=== PATIENT | female | born 1940 | race Hispanic/Latino ===

== ENCOUNTER 2018-10-18 20:09 | Inpatient (IN) | payer MEDICARE ==
[~2018-10-18] VITALS: Ht 162.6 cm; Wt 87.6 kg
[~2018-10-18 20:09] MED LIST: AEC81 PO; ALBU90AE IH; APIX5TAB PO; ATOR40TA71 PO; BENZ200C53 PO; DOXY100T2 PO; FLU15OS OU; FLUT250D3 IH; FOLI1CAP10 PO; GUAI118S23 PO; ISOS60TA4 PO; LATA1OIL OU; MELA10TA2 PO; METO-409 PO; NITR.4 SL; OMEP20CA10 PO; PRED20TA3 PO; RAMI1.2528 PO; RANO10003 PO; TEMA30CA PO
[2018-10-18] MEDS ORDERED: IPRATROPIUM/ALBUTEROL SULFATE 3 ML SOLUTION IH ONE (21:13)
[2018-10-18] MEDS ORDERED: METHYLPREDNISOLONE SOD SUCC 125MG/2ML VIAL ONE (21:37)
[2018-10-18 21:52] LABS: BASOPHILS % (AUTO) 2.3 % (0.0-5.0); EOSINOPHILS % (AUTO) 0.2 % (0.0-8.0); HEMATOCRIT 31.4 % (36-48); MEAN CORPUSCULAR HEMOGLOBIN 33.3 pg (27.0-33.0); MEAN CORPUSCULAR VOLUME 98.1 fL (79-99); MONOCYTES % (AUTO) 8.2 % (3.0-13.0); NEUTROPHILS % (AUTO) 78.3 % (40.0-77.0); PLATELET COUNT (AUTO) 118 K/uL (130-400); WHITE BLOOD COUNT (AUTO) 8.9 K/uL (4.8-10.8)
[2018-10-18 22:02] LABS: POTASSIUM 3.5 mmol/L (3.5-5.1)
[2018-10-18 22:08] LABS: ALBUMIN 3.1 g/dL (3.5-5.0); BILIRUBIN,TOTAL 0.7 mg/dL (0.2-1.0); TOTAL PROTEIN, SERUM 6.3 g/dL (6.0-8.3)
[2018-10-18 22:16] LABS: B-TYPE NATRIURETIC PEPTIDE 313 pg/mL (0-100)
[2018-10-19] MEDS ORDERED: LEVOFLOXACIN 500 MG/D5W 100 ML 100 ML ONE (00:20)
[2018-10-19] MEDS: SODIUM CHLORIDE 0.9% 1000ML 1,000 ML IV SCH ×2 (01:08→15:02)
[2018-10-19] MEDS ORDERED: ONDANSETRON HCL 4 MG/2 ML VIAL IV PRN (01:15)
[2018-10-19] MEDS ORDERED: ACETAMINOPHEN 325 MG TAB PO PRN (01:15)
[2018-10-19] MEDS ORDERED: NITROGLYCERIN 0.4 MG SL TAB SL PRN (01:15)
[2018-10-19] MEDS: IPRATROPIUM/ALBUTEROL SULFATE 3 ML SOLUTION IH SCH ×4 (05:39→23:25)
[2018-10-19] MEDS ORDERED: ASPIRIN 81MG TAB.CHEW ONE (07:38)
[2018-10-19] MEDS ORDERED: FAMOTIDINE/PF 20 MG/2 ML VIAL IV ONE (07:39)
[2018-10-19] MEDS ORDERED: ISOSORBIDE MONO 30MG TAB SR PO ONE (07:39)
[2018-10-19] MEDS ORDERED: METOPROLOL TARTRATE 50 MG TAB ONE (07:39)
[2018-10-19] MEDS ORDERED: APIXABAN 2.5 MG TABLET PO ONE (07:39)
[2018-10-19] MEDS: ASPIRIN 81 MG EC TAB PO SCH (09:00)
[2018-10-19] MEDS ORDERED: PANTOPRAZOLE SODIUM 40 MG TABLET.DR PO SCH (09:00)
[2018-10-19] MEDS: FLUOROMETHOLONE 0.1% OU SCH ×2 (09:00→20:59)
[2018-10-19] MEDS: RANOLAZINE 500 MG TAB.SR.12H PO SCH ×2 (09:00→20:56)
[2018-10-19] MEDS ORDERED: ***HM***Melatonin 10 MG PO PRN (09:00)
[2018-10-19] MEDS: APIXABAN 5 MG TABLET PO SCH ×2 (09:00→20:55)
[2018-10-19] MEDS: LISINOPRIL 10 MG TABLET PO SCH (09:00)
[2018-10-19] MEDS: FAMOTIDINE/PF 20 MG/2 ML VIAL IV SCH ×2 (09:00→20:54)
[2018-10-19] MEDS: ISOSORBIDE MONO 30MG TAB SR PO SCH ×2 (09:00→20:55)
[2018-10-19] MEDS ORDERED: ***HM***Metoprolol Succinate 100 MG PO SCH (09:00)
[2018-10-19] MEDS: METOPROLOL TARTRATE 50 MG TAB PO SCH ×2 (09:00→20:55)
[2018-10-19] MEDS ORDERED: RAMIPRIL 1.25 MG PO SCH (09:00)
--- NOTE | 2018-10-19 10:11 | NUR ---
KAREL Shearer met with pt who is from [place], here visiting with her son and daughter in law Annamaria Chin [phone]. Pt lives alone, is independent, drives, has cane and scooter pending, no in home care services. [place] home [place] Addendum: 10/19/18 at 1013 by GURPREET MAY Amended: Links added.
[2018-10-19] MEDS ORDERED: IPRATROPIUM/ALBUTEROL SULFATE 3 ML SOLUTION IH ONE (11:13)
[2018-10-19 14:38] VITALS: BP 132/62
[2018-10-19] MEDS ORDERED: MONT10TA24 PO (15:34)
[2018-10-19] MEDS ORDERED: FURO20TA4 PO (15:34)
[2018-10-19] MEDS ORDERED: AMLO5TAB9 PO (15:34)
[2018-10-19] MEDS ORDERED: TRAZ-185 PO (15:34)
[2018-10-19] MEDS ORDERED: ESCI10TA54 PO (15:34)
[2018-10-19] MEDS ORDERED: PANT40TA25 PO (15:34)
[2018-10-19] MEDS ORDERED: PRED20TA3 PO (15:34)
[2018-10-19] MEDS: GUAIFENESIN-CODEINE 5 ML SYRUP PO PRN (16:07)
[2018-10-19] MEDS ORDERED: SODIUM CHLORIDE 3% FOR INHALATION 4 ML/AMP VIAL.NEB IH ONE ×2 (17:10→21:56)
[2018-10-19 19:00] VITALS: BP 113/50
[2018-10-19] MEDS: ATORVASTATIN CALCIUM 40 MG TABLET PO SCH (20:55)
[2018-10-19] MEDS: LATANOPROST 2.5 ML DROPS OU SCH (21:00)
[2018-10-19] MEDS: TEMAZEPAM 30 MG CAP PO PRN (22:34)
[2018-10-19 23:00] VITALS: BP 128/58
--- NOTE | 2018-10-19 23:56 | NUR ---
SLEEP Pt did not want to be bothered after she took her sleeping pill tonight.States she did not really sleep well last night.
[2018-10-20] MEDS: LEVOFLOXACIN 500 MG/D5W 100 ML 100 ML IV SCH (00:25)
[2018-10-20] MEDS: SODIUM CHLORIDE 0.9% 1000ML 1,000 ML IV SCH ×2 (05:44→18:52)
[2018-10-20 05:57] LABS: BASOPHILS % (AUTO) 0.2 % (0.0-5.0); HEMATOCRIT 28.7 % (36-48); LYMPHOCYTES % (AUTO) 10.2 % (21.0-51.0); MEAN CORPUSCULAR HEMOGLOBIN 33.4 pg (27.0-33.0); MEAN CORPUSCULAR HGB CONC 34.1 g/dL (32.0-36.0); MEAN CORPUSCULAR VOLUME 98.1 fL (79-99); MONOCYTES % (AUTO) 9.6 % (3.0-13.0); NUCLEATED RED BLOOD CELLS 0.1 % (0.0-0.19); PLATELET COUNT (AUTO) 123 K/uL (130-400); RED BLOOD CELL COUNT(AUTO) 2.92 MIL/uL (4.00-5.50); RED CELL DISTRIBUTION WIDTH 12.8 % (11.0-15.5); WHITE BLOOD COUNT (AUTO) 10.3 K/uL (4.8-10.8)
[2018-10-20 06:05] LABS: CREATININE 1.1 mg/dL (0.5-1.5); POTASSIUM 4.2 mmol/L (3.5-5.1)
[2018-10-20] MEDS: PANTOPRAZOLE SODIUM 40 MG TABLET.DR PO SCH (06:46)
[2018-10-20] MEDS: GUAIFENESIN-CODEINE 5 ML SYRUP PO PRN (06:50)
[2018-10-20] MEDS: IPRATROPIUM/ALBUTEROL SULFATE 3 ML SOLUTION IH SCH ×4 (06:57→23:50)
[2018-10-20 07:00] VITALS: BP 112/49
[2018-10-20] MEDS: FLUOROMETHOLONE 0.1% OU SCH ×2 (09:00→21:00)
[2018-10-20] MEDS: ASPIRIN 81 MG EC TAB PO SCH (09:53)
[2018-10-20] MEDS: RANOLAZINE 500 MG TAB.SR.12H PO SCH ×2 (09:53→22:02)
[2018-10-20] MEDS: ISOSORBIDE MONO 30MG TAB SR PO SCH ×2 (09:53→22:02)
[2018-10-20] MEDS: LISINOPRIL 10 MG TABLET PO SCH (09:53)
[2018-10-20] MEDS: FAMOTIDINE/PF 20 MG/2 ML VIAL IV SCH ×2 (09:54→22:05)
[2018-10-20] MEDS: METOPROLOL TARTRATE 50 MG TAB PO SCH ×2 (09:54→22:03)
[2018-10-20] MEDS: APIXABAN 5 MG TABLET PO SCH ×2 (09:54→22:02)
[2018-10-20 11:00] VITALS: BP 127/54
[2018-10-20] MEDS: METHYLPREDNISOLONE SOD SUCC 40MG/ML 1ML IVP SCH ×2 (15:26→18:51)
[2018-10-20 16:00] VITALS: BP 126/81
[2018-10-20 19:00] VITALS: BP 137/61
[2018-10-20] MEDS: INSULIN HUMULIN R 100 UNIT/ML 3ML SQ SCH (21:00)
[2018-10-20] MEDS: LATANOPROST 2.5 ML DROPS OU SCH (22:02)
[2018-10-20] MEDS: ATORVASTATIN CALCIUM 40 MG TABLET PO SCH (22:03)
[2018-10-20] MEDS: TEMAZEPAM 30 MG CAP PO PRN (22:05)
[2018-10-21] VITALS (12 sets, daily range): BP systolic 120–153; BP diastolic 63–93
[2018-10-21] MEDS: LEVOFLOXACIN 500 MG/D5W 100 ML 100 ML IV SCH (01:06)
[2018-10-21] MEDS: METHYLPREDNISOLONE SOD SUCC 40MG/ML 1ML IVP SCH ×3 (01:06→17:38)
[2018-10-21] MEDS: INSULIN HUMULIN R 100 UNIT/ML 3ML SQ SCH ×4 (05:42→21:00)
[2018-10-21] MEDS: IPRATROPIUM/ALBUTEROL SULFATE 3 ML SOLUTION IH SCH ×4 (05:54→23:28)
[2018-10-21] MEDS: PANTOPRAZOLE SODIUM 40 MG TABLET.DR PO SCH (06:55)
[2018-10-21] MEDS: METOPROLOL TARTRATE 50 MG TAB PO SCH ×2 (08:26→21:27)
[2018-10-21] MEDS: LISINOPRIL 10 MG TABLET PO SCH (08:26)
[2018-10-21] MEDS: RANOLAZINE 500 MG TAB.SR.12H PO SCH ×2 (08:26→21:27)
[2018-10-21] MEDS: APIXABAN 5 MG TABLET PO SCH ×2 (08:27→21:27)
[2018-10-21] MEDS: ISOSORBIDE MONO 30MG TAB SR PO SCH ×2 (08:28→21:27)
[2018-10-21] MEDS: FAMOTIDINE/PF 20 MG/2 ML VIAL IV SCH ×2 (08:28→11:54)
[2018-10-21] MEDS: ASPIRIN 81 MG EC TAB PO SCH (08:28)
[2018-10-21] MEDS: FLUOROMETHOLONE 0.1% OU SCH ×2 (08:29→21:00)
[2018-10-21] MEDS: PNEUMOCOCCAL VACCINE POLYVALENT 0.5 ML/VIAL [PPV] IM SCH ×2 (08:43→11:54)
--- NOTE | 2018-10-21 09:44 | NUR ---
PULMONARY CONSULT ORDERED AND CALLED IN.
[2018-10-21] MEDS: BENZONATATE 100 MG CAPSULE PO SCH ×2 (11:50→17:38)
[2018-10-21] MEDS: LATANOPROST 2.5 ML DROPS OU SCH (21:00)
[2018-10-21] MEDS: ATORVASTATIN CALCIUM 40 MG TABLET PO SCH (21:27)
[2018-10-21] MEDS: SODIUM CHLORIDE 0.9% 1000ML 1,000 ML IV SCH (21:28)
[2018-10-21] MEDS: TEMAZEPAM 30 MG CAP PO PRN (22:09)
[2018-10-21] MEDS: GUAIFENESIN-CODEINE 5 ML SYRUP PO PRN (22:09)
[2018-10-22] VITALS: BP 119/76
[2018-10-22] MEDS: LEVOFLOXACIN 500 MG/D5W 100 ML 100 ML IV SCH ×2 (00:57→22:35)
[2018-10-22] MEDS: SODIUM CHLORIDE 0.9% 1000ML 1,000 ML IV SCH ×2 (00:57→18:20)
[2018-10-22] MEDS: METHYLPREDNISOLONE SOD SUCC 40MG/ML 1ML IVP SCH ×3 (00:57→18:08)
[2018-10-22] MEDS: BENZONATATE 100 MG CAPSULE PO SCH ×4 (01:30→22:35)
[2018-10-22 04:00] VITALS: BP 137/72
[2018-10-22] MEDS: IPRATROPIUM/ALBUTEROL SULFATE 3 ML SOLUTION IH SCH ×4 (06:07→23:13)
[2018-10-22] MEDS: PANTOPRAZOLE SODIUM 40 MG TABLET.DR PO SCH (06:21)
[2018-10-22] MEDS: INSULIN HUMULIN R 100 UNIT/ML 3ML SQ SCH ×4 (07:30→21:00)
[2018-10-22 08:00] VITALS: BP 158/74
[2018-10-22] MEDS: GUAIFENESIN-CODEINE 5 ML SYRUP PO PRN ×3 (08:56→21:05)
[2018-10-22] MEDS: APIXABAN 5 MG TABLET PO SCH ×2 (08:56→21:04)
[2018-10-22] MEDS: RANOLAZINE 500 MG TAB.SR.12H PO SCH ×2 (08:57→21:04)
[2018-10-22] MEDS: METOPROLOL TARTRATE 50 MG TAB PO SCH ×2 (08:57→21:05)
[2018-10-22] MEDS: ASPIRIN 81 MG EC TAB PO SCH (08:57)
[2018-10-22] MEDS: FAMOTIDINE/PF 20 MG/2 ML VIAL IV SCH ×2 (08:58→21:05)
[2018-10-22] MEDS: ISOSORBIDE MONO 30MG TAB SR PO SCH ×2 (08:58→21:05)
[2018-10-22] MEDS: LISINOPRIL 10 MG TABLET PO SCH (08:58)
[2018-10-22] MEDS: FLUOROMETHOLONE 0.1% OU SCH ×2 (09:00→21:00)
[2018-10-22 12:00] VITALS: BP 129/80
[2018-10-22 16:00] VITALS: BP 114/68
[2018-10-22 20:00] VITALS: BP 123/74
[2018-10-22] MEDS: ATORVASTATIN CALCIUM 40 MG TABLET PO SCH (21:04)
[2018-10-22] MEDS: LATANOPROST 2.5 ML DROPS OU SCH (21:06)
[2018-10-22] MEDS: TEMAZEPAM 30 MG CAP PO PRN (22:35)
[2018-10-23] VITALS (7 sets, daily range): BP systolic 123–150; BP diastolic 51–95
[2018-10-23] MEDS: METHYLPREDNISOLONE SOD SUCC 40MG/ML 1ML IVP SCH ×2 (00:57→10:03)
[2018-10-23] MEDS: SODIUM CHLORIDE 0.9% 1000ML 1,000 ML IV SCH (05:50)
[2018-10-23 06:10] LABS: HEMATOCRIT 30.4 % (36-48); MEAN CORPUSCULAR HEMOGLOBIN 33.1 pg (27.0-33.0); MEAN CORPUSCULAR HGB CONC 33.3 g/dL (32.0-36.0); MEAN CORPUSCULAR VOLUME 99.4 fL (79-99); NUCLEATED RED BLOOD CELLS 0.1 % (0.0-0.19); PLATELET COUNT (AUTO) 140 K/uL (130-400); RED BLOOD CELL COUNT(AUTO) 3.06 MIL/uL (4.00-5.50); RED CELL DISTRIBUTION WIDTH 12.9 % (11.0-15.5); WHITE BLOOD COUNT (AUTO) 7.4 K/uL (4.8-10.8)
[2018-10-23] MEDS: INSULIN HUMULIN R 100 UNIT/ML 3ML SQ SCH ×4 (06:12→21:00)
[2018-10-23 06:19] LABS: CREATININE 1.3 mg/dL (0.5-1.5); POTASSIUM 5.5 mmol/L (3.5-5.1)
[2018-10-23] MEDS: IPRATROPIUM/ALBUTEROL SULFATE 3 ML SOLUTION IH SCH ×4 (07:09→23:14)
[2018-10-23] MEDS: FLUOROMETHOLONE 0.1% OU SCH ×2 (09:00→21:00)
[2018-10-23] MEDS: RANOLAZINE 500 MG TAB.SR.12H PO SCH ×2 (10:00→21:18)
[2018-10-23] MEDS: PANTOPRAZOLE SODIUM 40 MG TABLET.DR PO SCH (10:01)
[2018-10-23] MEDS: ISOSORBIDE MONO 30MG TAB SR PO SCH ×2 (10:01→21:18)
[2018-10-23] MEDS: METOPROLOL TARTRATE 50 MG TAB PO SCH ×2 (10:01→21:19)
[2018-10-23] MEDS: APIXABAN 5 MG TABLET PO SCH ×2 (10:01→21:19)
[2018-10-23] MEDS: ASPIRIN 81 MG EC TAB PO SCH (10:02)
[2018-10-23] MEDS: BENZONATATE 100 MG CAPSULE PO SCH ×3 (10:02→23:04)
[2018-10-23] MEDS: FAMOTIDINE/PF 20 MG/2 ML VIAL IV SCH ×2 (10:02→21:19)
[2018-10-23] MEDS: LISINOPRIL 10 MG TABLET PO SCH (10:02)
[2018-10-23] MEDS: GUAIFENESIN-CODEINE 5 ML SYRUP PO PRN (10:04)
[2018-10-23] MEDS: PREDNISONE 20 MG TABLET PO SCH (21:19)
[2018-10-23] MEDS: LATANOPROST 2.5 ML DROPS OU SCH (21:19)
[2018-10-23] MEDS: ATORVASTATIN CALCIUM 40 MG TABLET PO SCH (21:19)
[2018-10-23] MEDS: TEMAZEPAM 30 MG CAP PO PRN (23:03)
[2018-10-24 03:53] VITALS: BP 141/92
[2018-10-24] MEDS: INSULIN HUMULIN R 100 UNIT/ML 3ML SQ SCH ×4 (06:05→21:00)
[2018-10-24] MEDS: IPRATROPIUM/ALBUTEROL SULFATE 3 ML SOLUTION IH SCH ×6 (06:19→23:32)
[2018-10-24] MEDS: BENZOCAINE/MENTH/CETYLPYRD CL 1 EACH LOZENGE MM PRN ×2 (06:39→09:29)
[2018-10-24] MEDS: GUAIFENESIN-CODEINE 5 ML SYRUP PO PRN ×2 (06:39→09:27)
[2018-10-24 08:00] VITALS: BP 152/78
[2018-10-24] MEDS: FLUOROMETHOLONE 0.1% OU SCH ×2 (09:00→21:00)
[2018-10-24] MEDS: PREDNISONE 20 MG TABLET PO SCH (09:19)
[2018-10-24] MEDS: ISOSORBIDE MONO 30MG TAB SR PO SCH ×2 (09:19→21:45)
[2018-10-24] MEDS: APIXABAN 5 MG TABLET PO SCH ×2 (09:19→21:44)
[2018-10-24] MEDS: BENZONATATE 100 MG CAPSULE PO SCH ×2 (09:19→17:36)
[2018-10-24] MEDS: FAMOTIDINE/PF 20 MG/2 ML VIAL IV SCH ×2 (09:20→21:45)
[2018-10-24] MEDS: RANOLAZINE 500 MG TAB.SR.12H PO SCH ×2 (09:20→21:44)
[2018-10-24] MEDS: ASPIRIN 81 MG EC TAB PO SCH (09:20)
[2018-10-24] MEDS: LEVOFLOXACIN 500 MG TABLET PO SCH (09:20)
[2018-10-24] MEDS: LISINOPRIL 10 MG TABLET PO SCH (09:20)
[2018-10-24] MEDS: METOPROLOL TARTRATE 50 MG TAB PO SCH ×2 (09:20→21:45)
[2018-10-24 09:38] LABS: BASOPHILS % (AUTO) 0.1 % (0.0-5.0); HEMATOCRIT 34.2 % (36-48); MEAN CORPUSCULAR HEMOGLOBIN 32.5 pg (27.0-33.0); MEAN CORPUSCULAR HGB CONC 32.4 g/dL (32.0-36.0); MEAN CORPUSCULAR VOLUME 100.1 fL (79-99); MONOCYTES % (AUTO) 9.6 % (3.0-13.0); NEUTROPHILS % (AUTO) 80.3 % (40.0-77.0); NUCLEATED RED BLOOD CELLS 0.4 % (0.0-0.19); PLATELET COUNT (AUTO) 142 K/uL (130-400); RED BLOOD CELL COUNT(AUTO) 3.41 MIL/uL (4.00-5.50); RED CELL DISTRIBUTION WIDTH 13.3 % (11.0-15.5); WHITE BLOOD COUNT (AUTO) 11.3 K/uL (4.8-10.8)
[2018-10-24 09:45] LABS: CREATININE 1.3 mg/dL (0.5-1.5); POTASSIUM 4.9 mmol/L (3.5-5.1)
[2018-10-24 12:00] VITALS: BP 148/74
[2018-10-24] MEDS: ACETAMINOPHEN 325 MG TAB PO PRN ×2 (13:02→23:57)
[2018-10-24] MEDS ORDERED: DIATR MEGLU/DIATRIZOATE SODIUM 30 ML BOTTLE ONE (13:09)
--- NOTE | 2018-10-24 13:20 | NUR ---
PATIENT COMPLAINING OF LEFT LOWER QUADRANT PAIN. DR. Allison NOTIFIED. NEW ORDERS GIVEN.
[2018-10-24 16:00] VITALS: BP 149/84
--- NOTE | 2018-10-24 16:34 | NUR ---
INFORMED RY REYNA AND ARNIE GUERRERO NP REGARDING RESULTS FROM CT- ABD /PELVIS . NEW ORDERS GIVEN TO START ON MORPHINE 2 MG IV Q 4 HO URS PRN
[2018-10-24] MEDS ORDERED: MORPHINE SULFATE 2 MG/ML 1ML SYG IVP PRN (16:45)
[2018-10-24 17:28] LABS: ABG BASE EXCESS -3.1 mmol/L (-2.0-3.0); ABG HCO3 20.8 mmol/L (21.0-28.0); ABG OXYGEN SATURATION 97.2 % (95.0-99.0); ABG PCO2 34 mmHg (32-45)
[2018-10-24] MEDS: BUDESONIDE 0.5 MG/2 ML INH IH SCH (19:27)
[2018-10-24 20:20] VITALS: BP 139/57
[2018-10-24] MEDS: METHYLPREDNISOLONE SOD SUCC 40MG/ML 1ML IVP SCH (21:45)
[2018-10-24] MEDS: ATORVASTATIN CALCIUM 40 MG TABLET PO SCH (21:45)
[2018-10-24] MEDS: LATANOPROST 2.5 ML DROPS OU SCH (21:46)
[2018-10-24] MEDS: TEMAZEPAM 30 MG CAP PO PRN (21:54)
[2018-10-24 23:26] VITALS: BP 132/60
[2018-10-25] MEDS: BENZONATATE 100 MG CAPSULE PO SCH ×4 (01:30→17:37)
--- NOTE | 2018-10-25 01:59 | NUR ---
SLEEP Pt sleeping in bed,no cough noted.
[2018-10-25 04:17] VITALS: BP 135/74
[2018-10-25] MEDS: INSULIN HUMULIN R 100 UNIT/ML 3ML SQ SCH ×4 (05:52→21:00)
[2018-10-25 05:55] LABS: BASOPHILS % (AUTO) 0.1 % (0.0-5.0); HEMATOCRIT 28.7 % (36-48); LYMPHOCYTES % (AUTO) 9.1 % (21.0-51.0); MEAN CORPUSCULAR HEMOGLOBIN 33.2 pg (27.0-33.0); MEAN CORPUSCULAR HGB CONC 33.8 g/dL (32.0-36.0); MEAN CORPUSCULAR VOLUME 98.3 fL (79-99); MONOCYTES % (AUTO) 4.9 % (3.0-13.0); NEUTROPHILS % (AUTO) 85.9 % (40.0-77.0); NUCLEATED RED BLOOD CELLS 0.4 % (0.0-0.19); PLATELET COUNT (AUTO) 119 K/uL (130-400); RED BLOOD CELL COUNT(AUTO) 2.91 MIL/uL (4.00-5.50); WHITE BLOOD COUNT (AUTO) 9.8 K/uL (4.8-10.8)
[2018-10-25 06:38] LABS: CREATININE 1.2 mg/dL (0.5-1.5)
[2018-10-25] MEDS: BUDESONIDE 0.5 MG/2 ML INH IH SCH ×2 (06:49→18:54)
[2018-10-25] MEDS: IPRATROPIUM/ALBUTEROL SULFATE 3 ML SOLUTION IH SCH ×4 (06:49→23:19)
[2018-10-25 08:00] VITALS: BP 143/79
[2018-10-25] MEDS: APIXABAN 5 MG TABLET PO SCH ×2 (09:00→22:05)
[2018-10-25] MEDS: FLUOROMETHOLONE 0.1% OU SCH ×2 (09:00→21:00)
[2018-10-25] MEDS: FLUCONAZOLE 200 MG/NS 100 ML 100 ML IV SCH (09:19)
[2018-10-25] MEDS: METHYLPREDNISOLONE SOD SUCC 40MG/ML 1ML IVP SCH ×2 (09:19→21:55)
[2018-10-25] MEDS: METOPROLOL TARTRATE 50 MG TAB PO SCH ×3 (09:19→22:00)
[2018-10-25] MEDS: FAMOTIDINE/PF 20 MG/2 ML VIAL IV SCH ×2 (09:19→21:57)
[2018-10-25] MEDS: LEVOFLOXACIN 500 MG TABLET PO SCH (09:19)
[2018-10-25] MEDS: ISOSORBIDE MONO 30MG TAB SR PO SCH ×2 (09:20→21:59)
[2018-10-25] MEDS: LISINOPRIL 10 MG TABLET PO SCH (09:20)
[2018-10-25] MEDS: RANOLAZINE 500 MG TAB.SR.12H PO SCH ×2 (09:20→22:00)
[2018-10-25] MEDS: ASPIRIN 81 MG EC TAB PO SCH (09:20)
[2018-10-25 12:00] VITALS: BP 123/55
[2018-10-25 16:00] VITALS: BP 121/77
--- NOTE | 2018-10-25 18:30 | NUR ---
SPOKE TO DR. TINOCO REGARDING CONSULT. NO SURGICAL INTERVENTION AT THIS TIME. WILL FOLLOW UP WITH PATIENT TOMORROW.
[2018-10-25 19:00] VITALS: BP 123/71
[2018-10-25] MEDS: TEMAZEPAM 30 MG CAP PO PRN (22:00)
[2018-10-25] MEDS: GUAIFENESIN-CODEINE 5 ML SYRUP PO PRN (22:00)
[2018-10-25] MEDS: ATORVASTATIN CALCIUM 40 MG TABLET PO SCH (22:00)
[2018-10-25] MEDS: LATANOPROST 2.5 ML DROPS OU SCH (22:05)
[2018-10-26] VITALS: BP 130/61
[2018-10-26] MEDS: BENZONATATE 100 MG CAPSULE PO SCH ×3 (01:46→16:31)
[2018-10-26 04:00] VITALS: BP 122/53
[2018-10-26 05:31] LABS: BASOPHILS % (AUTO) 0.2 % (0.0-5.0); EOSINOPHILS % (AUTO) 0.1 % (0.0-8.0); HEMATOCRIT 27.9 % (36-48); LYMPHOCYTES % (AUTO) 8.6 % (21.0-51.0); MEAN CORPUSCULAR HEMOGLOBIN 32.1 pg (27.0-33.0); MEAN CORPUSCULAR HGB CONC 32.7 g/dL (32.0-36.0); MEAN CORPUSCULAR VOLUME 98.3 fL (79-99); MONOCYTES % (AUTO) 4.1 % (3.0-13.0); NUCLEATED RED BLOOD CELLS 0.2 % (0.0-0.19); PLATELET COUNT (AUTO) 105 K/uL (130-400); RED BLOOD CELL COUNT(AUTO) 2.84 MIL/uL (4.00-5.50); RED CELL DISTRIBUTION WIDTH 13.3 % (11.0-15.5); WHITE BLOOD COUNT (AUTO) 11.1 K/uL (4.8-10.8)
[2018-10-26 05:32] LABS: CREATININE 1.2 mg/dL (0.5-1.5); POTASSIUM 5.1 mmol/L (3.5-5.1)
[2018-10-26] MEDS: INSULIN HUMULIN R 100 UNIT/ML 3ML SQ SCH (06:15)
[2018-10-26] MEDS: BUDESONIDE 0.5 MG/2 ML INH IH SCH ×2 (06:16→18:52)
[2018-10-26] MEDS: IPRATROPIUM/ALBUTEROL SULFATE 3 ML SOLUTION IH SCH ×4 (06:16→23:06)
[2018-10-26 07:00] VITALS: BP 132/56
[2018-10-26] MEDS: FLUOROMETHOLONE 0.1% OU SCH ×2 (09:00→21:00)
[2018-10-26] MEDS: LEVOFLOXACIN 500 MG TABLET PO SCH (09:35)
[2018-10-26] MEDS: ASPIRIN 81 MG EC TAB PO SCH (09:36)
[2018-10-26] MEDS: FAMOTIDINE/PF 20 MG/2 ML VIAL IV SCH ×2 (09:36→22:50)
[2018-10-26] MEDS: METOPROLOL TARTRATE 50 MG TAB PO SCH ×2 (09:36→22:52)
[2018-10-26] MEDS: LISINOPRIL 10 MG TABLET PO SCH (09:36)
[2018-10-26] MEDS: RANOLAZINE 500 MG TAB.SR.12H PO SCH ×2 (09:37→22:54)
[2018-10-26] MEDS: APIXABAN 5 MG TABLET PO SCH ×2 (09:37→22:53)
[2018-10-26] MEDS: ISOSORBIDE MONO 30MG TAB SR PO SCH ×2 (09:37→22:53)
[2018-10-26] MEDS: METHYLPREDNISOLONE SOD SUCC 40MG/ML 1ML IVP SCH ×3 (09:37→22:50)
[2018-10-26] MEDS: FLUCONAZOLE 200 MG/NS 100 ML 100 ML IV SCH (09:44)
[2018-10-26 11:00] VITALS: BP 143/90
[2018-10-26] MEDS ORDERED: LEVOFLOXACIN 500 MG/D5W 100 ML 100 ML IV ONE (13:30)
[2018-10-26] MEDS: GUAIFENESIN-CODEINE 5 ML SYRUP PO PRN ×2 (15:11→22:53)
[2018-10-26] MEDS ORDERED: ACETAMINOPHEN-CODEINE 300/30MG TAB PO PRN (16:45)
--- NOTE | 2018-10-26 17:53 | NUR ---
Nutrition intervention: Nutrition notification for LOS x7. Pt admitted for RLL pneumonia. Pt currently on regular diet therapy with good oral intake. Pt with no nutritional concerns with n/v/d, chewing or swallowing difficulties. No nutritional changes made at this time.LBM 10/25. BMI 33.2. Recommendations: Continue current diet therapy. Addendum: 10/26/18 at [address] Amended: Links added.
[2018-10-26 19:00] VITALS: BP 122/63
--- NOTE | 2018-10-26 20:00 | NUR ---
ABDOMINAL BINDER ABDOMINAL BINDER IN PLACE. NOTED BRUISING TO ABDOMEN-PATIENT STATES NO DISCOMFORT
[2018-10-26] MEDS: ATORVASTATIN CALCIUM 40 MG TABLET PO SCH (22:53)
[2018-10-26] MEDS: LATANOPROST 2.5 ML DROPS OU SCH (22:54)
[2018-10-26] MEDS ORDERED: TEMAZEPAM 30 MG CAP ONE (23:04)
[2018-10-26] MEDS ORDERED: TEMAZEPAM 30 MG CAP PO PRN (23:15)
[2018-10-27] VITALS: BP 164/94
[2018-10-27] MEDS: BENZONATATE 100 MG CAPSULE PO SCH ×3 (02:02→17:58)
[2018-10-27 04:00] VITALS: BP 125/78
[2018-10-27 05:56] LABS: BASOPHILS % (AUTO) 0.1 % (0.0-5.0); HEMATOCRIT 27.9 % (36-48); LYMPHOCYTES % (AUTO) 8.4 % (21.0-51.0); MEAN CORPUSCULAR HEMOGLOBIN 32.6 pg (27.0-33.0); MEAN CORPUSCULAR HGB CONC 32.8 g/dL (32.0-36.0); MEAN CORPUSCULAR VOLUME 99.4 fL (79-99); MONOCYTES % (AUTO) 4.1 % (3.0-13.0); NEUTROPHILS % (AUTO) 87.4 % (40.0-77.0); PLATELET COUNT (AUTO) 107 K/uL (130-400); RED BLOOD CELL COUNT(AUTO) 2.81 MIL/uL (4.00-5.50); RED CELL DISTRIBUTION WIDTH 13.3 % (11.0-15.5); WHITE BLOOD COUNT (AUTO) 12.8 K/uL (4.8-10.8)
[2018-10-27] MEDS: METHYLPREDNISOLONE SOD SUCC 40MG/ML 1ML IVP SCH ×2 (05:58→13:57)
[2018-10-27 06:22] LABS: CREATININE 1.2 mg/dL (0.5-1.5); POTASSIUM 5.3 mmol/L (3.5-5.1)
[2018-10-27] MEDS: IPRATROPIUM/ALBUTEROL SULFATE 3 ML SOLUTION IH SCH ×3 (06:42→18:00)
[2018-10-27] MEDS: BUDESONIDE 0.5 MG/2 ML INH IH SCH ×2 (06:42→18:00)
[2018-10-27] MEDS: ISOSORBIDE MONO 30MG TAB SR PO SCH (08:56)
[2018-10-27] MEDS: FLUCONAZOLE 200 MG/NS 100 ML 100 ML IV SCH (08:56)
[2018-10-27] MEDS: RANOLAZINE 500 MG TAB.SR.12H PO SCH (08:56)
[2018-10-27] MEDS: FLUOROMETHOLONE 0.1% OU SCH (08:57)
[2018-10-27] MEDS: LISINOPRIL 10 MG TABLET PO SCH (08:57)
[2018-10-27] MEDS: LEVOFLOXACIN 500 MG TABLET PO SCH (08:57)
[2018-10-27] MEDS: FAMOTIDINE/PF 20 MG/2 ML VIAL IV SCH (08:57)
[2018-10-27] MEDS: ASPIRIN 81 MG EC TAB PO SCH (08:57)
[2018-10-27] MEDS: METOPROLOL TARTRATE 50 MG TAB PO SCH (08:57)
[2018-10-27] MEDS: APIXABAN 5 MG TABLET PO SCH (08:58)
[2018-10-27 09:46] VITALS: BP 143/69
[2018-10-27] MEDS ORDERED: LEVOFLOXACIN 250 MG/D5W 50ML 50 ML IVPB SCH (13:00)
[2018-10-27 15:11] VITALS: BP 140/70
--- NOTE | 2018-10-27 16:39 | NUR ---
DC PLAN VISITED WITH PATIENT. JERRY SIGNED FOR [facility]. REP VISITED ACCEPTED PATIENT. PATIENT TO DC TODAY. [facility]IA [facility] SENT. INFO GIVEN TO NURSE. Addendum: 10/27/18 at 1642 by HARPREET BRIZUELA RN CM Amended: Links added.
[2018-10-27 17:46] VITALS: BP 126/67
--- NOTE | 2018-10-27 17:59 | NUR ---
Patient transferred to [facility] for continuation of care. Instructed patient [facility] to continue giving antibiotics for PNA. IV to left foremarm to be kept. Patient noted with skin tears and bleeding from wiping around perianal. Assessed perianal and no hemorrhoids or open wounds noted. Instructed to use barrier cream and not rubbing hard when wiping. Instructed to use wipes for protection since she is at high risk for bleeding. Pt verbalized understanding to all teaching.
--- NOTE | 2018-10-28 09:22 | NUR ---
DC PLAN PATIENT ACCEPTED TO [facility]. WILL GO VIA [facility] DONE. Addendum: 10/28/18 at 0923 by HARPREET BRIZUELA RN CM Amended: Links added.
== END 2018-10-27 18:20 | DRG 202 ==
LOC: EDH 20:09 → EDHIP 10-19 00:25 → 3DH 10-19 14:26
PROVIDERS: ADMIT Internal Medicine; ATTEND Internal Medicine
PROC: 3E02340 Introduction of Influenza Vaccine into Muscle, Percutaneous Approach (ICD-10-PCS; principal; 2018-10-21)
PROC: 3E0234Z Introduction of Serum, Toxoid and Vaccine into Muscle, Percutaneous Approach (ICD-10-PCS; 2018-10-21)
DX: J20.9 Acute bronchitis, unspecified (principal); J90 Pleural effusion, not elsewhere classified; J98.11 Atelectasis; J84.10 Pulmonary fibrosis, unspecified; I10 Essential (primary) hypertension; E78.5 Hyperlipidemia, unspecified; E87.5 Hyperkalemia; J42 Unspecified chronic bronchitis; I48.91 Unspecified atrial fibrillation; Z79.01 Long term (current) use of anticoagulants; S30.1XXA Contusion of abdominal wall, initial encounter; G47.00 Insomnia, unspecified; I25.10 Atherosclerotic heart disease of native coronary artery without angina pectoris; Z82.49 Family history of ischemic heart disease and other diseases of the circulatory system; Z90.710 Acquired absence of both cervix and uterus; Z95.1 Presence of aortocoronary bypass graft; Z96.653 Presence of artificial knee joint, bilateral; Z88.0 Allergy status to penicillin; Z88.8 Allergy status to other drugs, medicaments and biological substances; X58.XXXA Exposure to other specified factors, initial encounter; Y93.89 Activity, other specified; Y92.89 Other specified places as the place of occurrence of the external cause; Y99.8 Other external cause status; Z23 Encounter for immunization
CPT/HCPCS: 36415; 36600; 71045; 71250; 74018; 74176; 80048; 80053; 82803; 82948; 83880; 84132; 84484; 85025; 85027; 87071; 87205; 87486; 87581; 87633; 87798; 87804; 90732; 93005; 94640; 94664; 97039; G0378; J1450; J1815; J1956; J2920; J2930; J3490; Q2035; Q9963